=== PATIENT | male | born 1970 | race Caucasian/White ===

== ENCOUNTER 2016-12-08 06:05 | Day surgery (SDC) | payer OTHER ==
--- NOTE | ~2016-12-08 | EGD ---
EGD REPORT [facility] [address] [address] NAME: ALBERTO MENDOZA : [birth year] STATUS : REG [facility]#: [id number] AGE: 46 ADM/REG DATE : 12/08/16 MR#: [id number] REPORT SERV DATE: 12/08/16 DICTATED BY: JANET LUCIANO DATE: 12/08/16 REPORT STATUS : Draft TRANSCRIBED BY: [facility] DATE: 12/08/16 Endoscopy Center Patient Name: Alberto Mendoza Date of : 1970 Attending MD: JANET LUCIANO, Procedure Date No Time: 12/08/2016 Procedure: Colonoscopy Indications: Surveillance: Piecemeal removal large sessile adenoma on last exam <6 months ago Referring MD: CRISTIAN BARRIENTOS MD Medicines: Monitored Anesthesia Care Complications: No immediate complications. Estimated blood loss: None. Procedure: Pre-Anesthesia Assessment: - ASA Grade Assessment: III - A patient with severe systemic disease. After I obtained informed consent, the scope was passed under direct vision. Throughout the procedure, the patient's blood pressure, pulse, and oxygen saturations were monitored continuously. The CF [id number] was introduced through the anus and advanced to the cecum, identified by appendiceal orifice and ileocecal valve. The colonoscopy was performed without difficulty. The patient tolerated the procedure well. The quality of the bowel preparation was adequate. Findings: The perianal and digital rectal examinations were normal. A single medium-sized scar was found in the ascending colon. Biopsies were taken with a cold forceps for histology. Verification of patient identification for the specimen was done. Estimated blood loss was minimal. A sessile polyp was found in the descending colon. The polyp was 3 mm in size. The polyp was removed with a cold biopsy forceps. Resection and retrieval were complete. Verification of patient identification for the specimen was done. Estimated blood loss was minimal. A flat polyp was found in the descending colon. The polyp was 25 mm in size. The polyp was removed with a piecemeal technique using a hot snare. Resection and retrieval were complete. Coagulation for tissue destruction using argon plasma at 1 liter/minute and 30 godwin was successful. To prevent bleeding after the polypectomy, three hemostatic clips were successfully placed. There was no bleeding during the procedure. Area was successfully injected with 3 mL Spot (carbon black) for tattooing. A sessile polyp was found in the rectum. The polyp was 2 mm in size. The polyp was removed with a cold biopsy forceps. Resection and retrieval EGD REPORT [address] [place]. [address] NAME: ALBERTO MENDOZA : [birth year] STATUS : REG [facility]#: [id number] AGE: 46 ADM/REG DATE : 12/08/16 MR#: [id number] REPORT SERV DATE: 12/08/16 DICTATED BY: JANET LUCIANO DATE: 12/08/16 REPORT STATUS : Draft TRANSCRIBED BY: [employer] DATE: 12/08/16 were complete. Verification of patient identification for the specimen was done. Estimated blood loss was minimal. Impression: - Scar in the ascending colon. Biopsied. - One 3 mm polyp in the descending colon. Resected and retrieved. - One 25 mm polyp in the descending colon. Resected and retrieved. Treated with thermal therapy. Clips were placed. Injected. - One 2 mm polyp in the rectum. Resected and retrieved. Recommendation: - Patient has a contact number available for emergencies. The signs and symptoms of potential delayed complications were discussed with the patient. Return to normal activities tomorrow. Written discharge instructions were provided to the patient. - Return to previous diet. - Continue present medications. - Await pathology results. - Repeat colonoscopy in 6 months for surveillance after piecemeal polypectomy. Procedure Code(s): --- Professional --- 81642, Colonoscopy, flexible, proximal to splenic flexure; with ablation of tumor(s), polyp(s), or other lesion(s) not amenable to removal by hot biopsy forceps, bipolar cautery or snare technique 87067, Colonoscopy, flexible, proximal to splenic flexure; with biopsy, single or multiple 20704, Colonoscopy, flexible, proximal to splenic flexure; with directed submucosal injection(s), any substance Diagnosis Code(s): --- Professional --- K63.89, Other specified diseases of intestine K62.1, Rectal polyp D12.4, Benign neoplasm of descending colon Z86.010, Personal history of colonic polyps CPT copyright 2013 [employer]. All rights reserved. The codes documented in this report are preliminary and upon head transfer clerk review may be revised to meet current compliance requirements. EM BROWN REPORT [facility] [address] [address] NAME: ALBERTO MENDOZA : [birth year] STATUS : REG [facility] [place] PAT#: [id number] AGE: 46 ADM/REG DATE : 12/08/16 MR#: [id number] REPORT SERV DATE: 12/08/16 DICTATED BY: JANET LUCIANO DATE: 12/08/16 REPORT STATUS : Draft TRANSCRIBED BY: [employer] DATE: 12/08/16 12/08/2016 8:57 AM Number of Addenda: 0 Note Initiated On: 12/08/2016 7:50 AM Scope Withdrawal Time 0 hours 41 minutes 15 seconds [address] [id number]
[~2016-12-08 06:05] MED LIST: ADVIL PO; ALEVE220 MG PO; ASA5GR PO; COREG3 PO; CYANO1000T PO; IND25 PO; ISORDIL10 PO; LIPITOR40 PO; NORCO1 TAB PO; PRIN10 PO; VITAMIN B-121000 MC1 SL; ZANTAC150 MG PO
== END 2016-12-08 23:59 | disposition home or self-care (01) ==
LOC: DMU 06:05
PROVIDERS: Internal Medicine Gastroenterology
PROC: 0DBK8ZX Excision of Ascending Colon, Via Natural or Artificial Opening Endoscopic, Diagnostic (ICD-10-PCS; principal; 2016-12-08 07:30)
PROC: 0DBP8ZZ Excision of Rectum, Via Natural or Artificial Opening Endoscopic (ICD-10-PCS; 2016-12-08 07:30)
PROC: 0DBM8ZZ Excision of Descending Colon, Via Natural or Artificial Opening Endoscopic (ICD-10-PCS; 2016-12-08 07:30)
PROC: 3E0H8GC Introduction of Other Therapeutic Substance into Lower GI, Via Natural or Artificial Opening Endoscopic (ICD-10-PCS; 2016-12-08 07:30)
DX: Z12.11 Encounter for screening for malignant neoplasm of colon (principal); D12.4 Benign neoplasm of descending colon; K62.1 Rectal polyp; K21.9 Gastro-esophageal reflux disease without esophagitis; I10 Essential (primary) hypertension; E78.00 Pure hypercholesterolemia, unspecified; E78.5 Hyperlipidemia, unspecified; G47.33 Obstructive sleep apnea (adult) (pediatric); E66.01 Morbid (severe) obesity due to excess calories; Z68.41 Body mass index [BMI] 40.0-44.9, adult; Z86.010 Personal history of colon polyps; Z79.82 Long term (current) use of aspirin; Z79.899 Other long term (current) drug therapy; Z90.89 Acquired absence of other organs; Z87.442 Personal history of urinary calculi; Z98.890 Other specified postprocedural states
CPT/HCPCS: 88305